=== PATIENT | male | born 1975 | race Caucasian/White ===

== ENCOUNTER 2017-06-08 11:30 | Emergency (ER) | payer OTHER ==
[~2017-06-08] VITALS: Ht 167.6 cm; Wt 63.5 kg
[2017-06-08 11:39] VITALS: BP 118/80
[2017-06-08] MEDS ORDERED: GLUCOPHAGE XR750 MG PO (11:47)
== END 2017-06-08 12:24 | disposition home or self-care (01) ==
LOC: ER 11:30
DX: S61.451A Open bite of right hand, initial encounter (principal); E11.9 Type 2 diabetes mellitus without complications; W59.11XA Bitten by nonvenomous snake, initial encounter; Y93.89 Activity, other specified; Y92.89 Other specified places as the place of occurrence of the external cause; Y99.8 Other external cause status